=== PATIENT | male | born 1985 | race Caucasian/White ===

== ENCOUNTER 2020-05-17 18:01 | Emergency (ER) | payer SELFPAY ==
[~2020-05-17] VITALS: Ht 175.3 cm; Wt 71.0 kg
[2020-05-17 18:03] VITALS: BP 115/77
--- NOTE | 2020-05-17 18:36 | NUR ---
CONGRESSIONAL REPRESENTATIVE: PT AMBULATORY TO ROOM FROM LOBBY
[2020-05-17] MEDS ORDERED: DIPH,PERTUSS(ACELL),TET VAC/PF 0.5 ML IM-VACC ONE ×2 (18:55→19:00)
[2020-05-17] MEDS ORDERED: LIDOCAINE-MPF 1%, 5ML ONE (18:55)
[2020-05-17] MEDS ORDERED: LIDOCAINE-MPF 1%, 5ML INFIL ONE (19:00)
== END 2020-05-17 19:49 | disposition home or self-care (01) ==
LOC: ED 18:30
DX: S61.031A Puncture wound without foreign body of right thumb without damage to nail, initial encounter (principal); L03.011 Cellulitis of right finger; Z72.9 Problem related to lifestyle, unspecified; F17.210 Nicotine dependence, cigarettes, uncomplicated; X58.XXXA Exposure to other specified factors, initial encounter; Y93.89 Activity, other specified; Y92.009 Unspecified place in unspecified non-institutional (private) residence as the place of occurrence of the external cause; Y99.8 Other external cause status
CPT/HCPCS: 26011; 90471; 90715; 99283

== ENCOUNTER 2020-05-19 17:50 | Emergency (ER) | payer SELFPAY ==
[~2020-05-19] VITALS: Ht 175.3 cm; Wt 72.0 kg
[2020-05-19] MEDS ORDERED: LIDOCAINE-MPF 1%, 5ML ONE (18:49)
[2020-05-19] MEDS ORDERED: LIDOCAINE 1%, 10ML INFIL ONE (19:00)
[2020-05-19] MEDS ORDERED: HYDROcodone/APAP 5/325 TABLET ONE (19:43)
--- NOTE | 2020-05-19 19:50 | NUR ---
pt in bed with no signs or symptoms of acute distress noted respirations even and unlabored. pt up to ambulate to bathroom walked with steady gait and good balance returned safely to bed, denies need at this time. pt medicated as ordered with norco 5/325 for pain in thumb rated 7/10. pt verbalizes appreciation for cares and concern
[2020-05-19] MEDS ORDERED: HYDROcodone/APAP 5/325 TABLET PO ONE (20:00)
[2020-05-19 20:46] VITALS: BP 138/70
== END 2020-05-19 20:48 | disposition home or self-care (01) ==
LOC: ED 18:20
DX: S61.031A Puncture wound without foreign body of right thumb without damage to nail, initial encounter (principal); Z48.00 Encounter for change or removal of nonsurgical wound dressing; L02.511 Cutaneous abscess of right hand; X58.XXXA Exposure to other specified factors, initial encounter; Y93.89 Activity, other specified; Y92.89 Other specified places as the place of occurrence of the external cause; Y99.8 Other external cause status
CPT/HCPCS: 64450; 99284